=== PATIENT | male | born 1980 | race American Indian/Alaskan Native ===

== ENCOUNTER 2019-12-27 19:09 | Observation (INO) | payer OTHER ==
[2019-12-27 20:07] LABS: Basophils # (Auto) 0.1 K/mm3 (0.0-0.1); Basophils % (Auto) 0.8 % (0.0-1.8); Eosinophils % (Auto) 0.3 % (0.0-4.3); Hematocrit 45.4 % (35.5-45.6); Hemoglobin 15.7 gm/dl (11.8-15.2); Lymphocytes # (Auto) 1.3 K/mm3 (1.2-5.4); Lymphocytes % (Auto) 18.4 % (13.4-35.0); Mean Corpuscular HGB Conc 35 % (32-34); Mean Corpuscular Volume 94 fl (84-94); Monocytes # (Auto) 0.4 K/mm3 (0.0-0.8); Monocytes % (Auto) 5.7 % (0.0-7.3); Platelet Count 297 K/mm3 (140-440); Red Blood Count 4.84 M/mm3 (3.65-5.03); Red Cell Distribution Width 15.2 % (13.2-15.2)
[2019-12-27 20:24] LABS: Alanine Aminotransferase 26 units/L (7-56); Albumin 5.2 g/dL (3.9-5); BUN/Creatinine Ratio 14; Blood Urea Nitrogen 15 mg/dL (9-20); Calcium 10.1 mg/dL (8.4-10.2); Hemolysis Index 36
[2019-12-27 20:59] LABS: Bacteria,Urine 1+ /HPF (Negative); Bilirubin,Urine NEG (Negative); Blood,Urine SM (Negative); Color,Urine Yellow (Yellow); Mucus,Urine FEW /HPF; Urobilinogen,Urine < 2.0 mg/dL (<2.0)
[2019-12-28] MEDS ORDERED: ONDANSETRON 4 MG/2 ML INJ IV ONE (01:43)
[2019-12-28] MEDS ORDERED: SODIUM CHLORIDE 0.9% 1000 ML 1,000 ML IV ONE ×3 (01:46→04:15)
--- NOTE | 2019-12-28 01:47 | Emergency Department Report ---
ED N/V/D HPI - General Chief complaint: Nausea/Vomiting/Diarrhea Stated complaint: N/V HEAVY SWEATING PUI?: No Time Seen by Provider: 12/28/19 01:43 Source: patient Mode of arrival: Ambulatory Limitations: No Limitations - History of Present Illness Initial comments: Patient is a 39-year-old male that presents nausea vomiting and diaphoresis. Patient states he is also having body aches and chills. Patient denies fever. Patient denies abdominal pain. Patient denies blood in his vomitus. Patient states his symptoms are worsening. Patient states he is not able to hold any p.o. intake down. Patient states he is vomiting multiple times per day. Patient states his symptoms started at 4 PM yesterday. Patient states that he is feeling fatigued. Patient denies diarrhea. Patient denies chest pain. Patient denies shortness of breath. Patient denies cough. MD complaint: nausea, vomiting -: Sudden Description of Vomiting: watery Associated Abdominal Pain: No Severity: severe Pain Scale: 0 Consistency: constant Improves with: rest Worsens with: eating Associated Symptoms: myalgias, diaphoresis, malaise, nausea/vomiting. denies: chest pain, cough, headaches, loss of appetite, rash, dysuria, shortness of breath, syncope - Related Data Allergies Allergy/AdvReac Type Severity Reaction Status Date / Time No Known Allergies Allergy Verified 12/28/19 01:57 ED Review of Systems ROS: Stated complaint: N/V HEAVY SWEATING Other details as noted in HPI Constitutional: diaphoresis, malaise. denies: chills, fever Eyes: denies: eye pain, eye discharge, vision change ENT: denies: ear pain, throat pain Respiratory: denies: cough, shortness of breath, wheezing Cardiovascular: denies: chest pain, palpitations Endocrine: no symptoms reported Gastrointestinal: nausea, vomiting. denies: abdominal pain, diarrhea Genitourinary: denies: urgency, dysuria Musculoskeletal: denies: back pain, joint swelling, arthralgia Skin: denies: rash, lesions Neurological: denies: headache, weakness, paresthesias Psychiatric: denies: anxiety, depression Hematological/Lymphatic: denies: easy bleeding, easy bruising ED Past Medical Hx - Past Medical History Previous Medical History?: Yes Hx Hypertension: Yes - Surgical History Past Surgical History?: No Additional Surgical History: Tonsilectomy - Family History Family history: no significant - Social History Smoking Status: Current Every Day Smoker Substance Use Type: Alcohol, Marijuana ED Physical Exam - General Limitations: No Limitations General appearance: alert, in no apparent distress - Head Head exam: Present: atraumatic, normocephalic - Eye Eye exam: Present: normal appearance, PERRL Pupils: Present: normal accommodation - ENT ENT exam: Present: mucous membranes dry - Neck Neck exam: Present: normal inspection - Respiratory Respiratory exam: Present: normal lung sounds bilaterally. Absent: respiratory distress - Cardiovascular Cardiovascular Exam: Present: regular rate, normal rhythm. Absent: systolic murmur, diastolic murmur, rubs, gallop - GI/Abdominal GI/Abdominal exam: Present: soft, normal bowel sounds. Absent: distended, tenderness, guarding - Rectal Rectal exam: Present: deferred - Extremities Exam Extremities exam: Present: normal inspection - Back Exam Back exam: Present: normal inspection - Neurological Exam Neurological exam: Present: alert, oriented X3 - Psychiatric Psychiatric exam: Present: normal affect, normal mood - Skin Skin exam: Present: warm, dry, intact, normal color. Absent: rash ED Course Vital Signs 12/27/19 12/28/19 12/28/19 19:17 02:59 03:00 Temperature 97.6 F Pulse Rate 58 L 54 L 55 L Respiratory 20 19 19 Rate Blood Pressure 216/147 O2 Sat by Pulse 98 100 98 Oximetry 12/28/19 12/28/19 12/28/19 03:15 03:31 03:45 Temperature Pulse Rate 57 L 54 L 56 L Respiratory 19 20 19 Rate Blood Pressure 184/118 184/118 184/118 O2 Sat by Pulse 99 99 99 Oximetry 12/28/19 12/28/19 04:01 04:06 Temperature Pulse Rate 57 L Respiratory 20 Rate Blood Pressure 185/107 185/107 O2 Sat by Pulse 99 Oximetry - Reevaluation(s) Reevaluation #1: Patient resting in room. Patient able to tolerate p.o. intake without vomiting. Patient still complains of nausea. Patient still complaining of muscle pain. I discussed all results with patient. I discussed plan of care with patient. Patient agrees with plan of care and admission. Patient to be admitted to the hospitalist service. 12/28/19 03:44 Reevaluation #2: Patient is vomiting again. Patient will be given Compazine. Patient was given more fluids. 12/28/19 04:15 - Consultations Consultation #1: Hospitalist consulted for admission. Hospitalist to admit patient. 12/28/19 03:45 ED Medical Decision Making - Lab Data Result diagrams: 12/27/19 19:41 12/27/19 19:41 - EKG Data -: EKG Interpreted by Me EKG shows normal: sinus rhythm, axis, intervals, QRS complexes, ST-T waves Rate: bradycardia - EKG Data Interpretation: LVH - Radiology Data Radiology results: report reviewed, image reviewed interpreted by me: Chest x-ray: No pneumonia, no pneumothorax, normal heart size, no foreign body, no acute findings. CHEST 1 VIEW INDICATION: n/v hbp. COMPARISON: 10/01/2016. FINDINGS: Support devices: None. Heart: Stable borderline heart size. Lungs/Pleura: No acute air space or interstitial disease. Additional findings: None. IMPRESSION: No acute abnormality. - Medical Decision Making Patient is a 39-year-old male that presents emergency room with complaints of nausea, vomiting, Body aches, muscle cramps. patient has a history of hypertension but patient is noncompliant with medication. Patient's blood pressure extremely high in the ER. Patient given Vasotec IV for the blood pressure. Patient given Zofran 8 mg and patient still continued to have nausea vomiting. Patient admitted to the hospitalist service. Patient's labs are essentially unremarkable. - Differential Diagnosis Intractable nausea vomiting, gastroenteritis, myalgia, rhabdo, dehydration Critical Care Time: Yes Critical care time in (mins) excluding proc time.: 35 Critical care attestation.: If time is entered above; I have spent that time in minutes in the direct care of this critically ill patient, excluding procedure time. Critical Care Time: 35 minutes ED Disposition Clinical Impression: Elevated CK-MB level, Gastroenteritis, Intractable vomiting with nausea, Myalgia, Hypertensive emergency without congestive heart failure Rhabdomyolysis Qualifiers: Rhabdomyolysis type: non-traumatic Qualified Code(s): M62.82 - Rhabdomyolysis Disposition: OP ADMIT IP TO THIS HOSP Is pt being admited?: Yes Does the pt Need Aspirin: No Condition: Critical Time of Disposition: 03:48
[2019-12-28] MEDS ORDERED: SODIUM CHLORIDE 0.9% 1000 ML 1,000 ML ONE ×4 (01:49→06:49)
--- NOTE | 2019-12-28 02:10 | XRay Report ---
CHEST 1 VIEW INDICATION: n/v hbp. COMPARISON: 10/01/2016. FINDINGS: Support devices: None. Heart: Stable borderline heart size. Lungs/Pleura: No acute air space or interstitial disease. Additional findings: None. IMPRESSION: No acute abnormality. Signer Name: Chance Enriquez MD Signed: 12/28/2019 2:06 AM Workstation Name: [id number]
[2019-12-28] MEDS ORDERED: ENALAPRILAT 2.5 MG/2 ML INJ IV ONE (03:44)
[2019-12-28] MEDS ORDERED: PROCHLORPERAZINE EDISYLATE 10 MG/2 ML VIAL IV ONE (04:14)
--- NOTE | 2019-12-28 08:38 | History and Physical Report ---
History of Present Illness Date of examination: 12/28/19 Date of admission: 12/28/19 03:50 Chief complaint: Nausea vomiting diaphoresis History of present illness: 39-year-old male patient with significant past medical history of hypertension, not on any medications for many months presented to the emergency room with nausea vomiting and diaphoresis since last night. Patient also complains of generalized body pains and chills denies fever . Patient denies headache dizziness weakness or numbness, denies chest pain or shortness of breath No nausea vomiting or abdominal pain Patient denies fever, no upper respiratory or urinary symptoms Initial work-up in the emergency room is consistent with hypertensive emergency Chest x-ray no acute abnormality noted Patient was given multiple antihypertensives with mild improvement of blood pressures Past History Past Medical History: hypertension Past Surgical History: denies: No surgical history Social history: lives with family, smoking. denies: alcohol abuse, prescription drug abuse Family history: hypertension Medications and Allergies Allergies Allergy/AdvReac Type Severity Reaction Status Date / Time No Known Allergies Allergy Verified 12/28/19 01:57 Active Meds: Active Medications Hydralazine HCl (Apresoline) 50 mg PO Q8HR URIAH Labetalol HCl (Labetalol) 20 mg IV ONCE ONE Stop: 12/28/19 08:36 Labetalol HCl (Labetalol) 10 mg IV Q4H PRN PRN Reason: Hypertension Metoprolol Tartrate (Metoprolol) 25 mg PO BID URIAH Review of Systems Constitutional: weakness, no weight loss, no weight gain, no anorexia, no fatigue Ears, nose, mouth and throat: no nasal congestion, no nasal discharge Cardiovascular: no chest pain, no orthopnea Respiratory: no cough, no hemoptysis, no shortness of breath Gastrointestinal: abdominal pain, nausea, vomiting Genitourinary Male: no dysuria, no hematuria Musculoskeletal: no myalgias, no arthritis Integumentary: no rash, no lesions Neurological: no seizures, no syncope, no tremors Psychiatric: no anxiety, no depression Endocrine: no cold intolerance, no heat intolerance, no polydipsia, no polyuria Hematologic/Lymphatic: no easy bruising, no easy bleeding Allergic/Immunologic: no urticaria, no allergic rhinitis Exam - Constitutional Vitals: Temp Pulse Resp BP Pulse Ox 99.4 F 75 18 189/119 100 12/28/19 08:22 12/28/19 08:22 12/28/19 08:22 12/28/19 08:22 12/28/19 08:22 General appearance: Present: no acute distress, well-nourished - EENT Eyes: Present: PERRL, EOM intact - Neck Neck: Present: supple, normal ROM - Respiratory Respiratory effort: normal Respiratory: bilateral: diminished, negative: rales, rhonchi, wheezing - Cardiovascular Rhythm: regular Heart Sounds: Present: S1 & S2 - Extremities Extremities: no ischemia, No edema - Abdominal General gastrointestinal: Present: soft, non-tender, non-distended, normal bowel sounds - Integumentary Integumentary: Present: clear, warm - Musculoskeletal Musculoskeletal: strength equal bilaterally, generalized weakness - Psychiatric Psychiatric: appropriate mood/affect, cooperative - Neurologic Neurologic: moves all extremities HEART Score - HEART Score Troponin: Troponin T < 0.010 ng/mL (0.00-0.029) 12/27/19 19:41 Results - Labs CBC & Chem 7: 12/27/19 19:41 12/27/19 19:41 Labs: Abnormal lab results 12/27/19 12/27/19 12/28/19 Range/Units 19:41 19:41 Unknown Hgb 15.7 H (11.8-15.2) gm/dl MCH 33 H (28-32) pg MCHC 35 H (32-34) % Seg Neutrophils % 74.8 H (40.0-70.0) % Glucose 137 H (75-100) mg/dL Total Creatine Kinase 607 H (55-170) units/L Total Protein 8.3 H (6.3-8.2) g/dL Albumin 5.2 H (3.9-5) g/dL Assessment and Plan --Hypertensive emergency; Managed with multiple antihypertensives, labetalol, hydralazine Nifedipine, PRN medications, if no improvement Consider Cardene drip and admit to ICU --Intractable nausea vomiting/gastroenteritis; Aggressive IV hydration, antiemetics, antidiarrheals Clear liquid diet, supportive care check CT abdomen If no improvement --Mild elevation of CK; IV fluids, check drug screen --DVT prophylaxis; Lovenox We will closely monitor patient and adjust management as needed Plan of care reviewed with the patient and his nurse
[2019-12-28 09:17] LABS: Amphetamine Screen,Urine Negative; Benzodiazepines Screen,Urine Negative; Cocaine Screen,Urine Negative; Methadone Screen,Urine Negative; Opiate Screen,Urine Negative
[2019-12-28 09:41] LABS: Cannabinoid Screen,Urine Positive
[2019-12-28] MEDS ORDERED: METOPROLOL TARTRATE 25 MG TAB ONE (10:09)
[2019-12-28] MEDS ORDERED: PANTOPRAZOLE 40 MG INJ IV ONE (10:10)
[2019-12-28] MEDS: PANTOPRAZOLE 40 MG INJ IV SCH (10:43)
[2019-12-28] MEDS: METOPROLOL TARTRATE 25 MG TAB PO SCH ×2 (10:43→21:16)
[2019-12-28] MEDS: ONDANSETRON 4 MG/2 ML INJ IV PRN ×2 (11:46→18:44)
[2019-12-28] MEDS: ACETAMINOPHEN 325 MG TAB PO PRN (11:47)
[2019-12-28] MEDS ORDERED: NIFEdipine XL 30 MG TAB PO ONE (13:17)
[2019-12-28] MEDS ORDERED: ALPRAZolam 0.5 MG TAB PO PRN (13:18)
[2019-12-28] MEDS ORDERED: hydrALAZINE 25 MG TAB PO SCH (14:00)
[2019-12-28] MEDS: hydrALAZINE 100 MG TAB PO SCH (18:45)
[2019-12-28] MEDS: ENOXAPARIN 40 MG/0.4 ML INJ SUB-Q SCH (21:15)
[2019-12-28] MEDS ORDERED: NIFEdipine XL 30 MG TAB PO SCH (22:00)
[2019-12-29] MEDS: hydrALAZINE 100 MG TAB PO SCH ×4 (01:57→18:32)
--- NOTE | 2019-12-29 08:32 | Progress Note ---
Assessment and Plan Assessment and plan: --Hypertensive emergency; Slightly improved,adjust antihypertensives Managed with multiple antihypertensives, labetalol, hydralazine Nifedipine, PRN medications, if no improvement f/u pending CT head and ECHO --Intractable nausea vomiting/gastroenteritis; Aggressive IV hydration, antiemetics, antidiarrheals Clear liquid diet, supportive care check CT abdomen If no improvement --Mild elevation of CK; IV fluids,drug screen positive for marijuana --DVT prophylaxis; Lovenox We will closely monitor patient and adjust management as needed Plan of care reviewed with the patient and his nurse History Interval history: I have seen and examined the patient at the bedside Patient's chart and current medications reviewed Patient's blood pressure slightly improved Patient denies any chest pain or shortness of breath Denies headache or dizziness Complains of mild nausea no vomiting Vital signs noted Hospitalist Physical - Constitutional Vitals: Temp Pulse Resp BP Pulse Ox 99.2 F 74 20 178/101 96 12/29/19 05:26 12/29/19 05:26 12/29/19 05:26 12/29/19 05:26 12/29/19 05:26 General appearance: Present: no acute distress, well-nourished - EENT Eyes: Present: PERRL, EOM intact - Neck Neck: Present: supple, normal ROM - Respiratory Respiratory effort: normal Respiratory: bilateral: diminished, negative: rales, rhonchi, wheezing - Cardiovascular Rhythm: regular Heart Sounds: Present: S1 & S2 - Extremities Extremities: no ischemia, No edema - Abdominal General gastrointestinal: soft, non-tender, non-distended, normal bowel sounds - Integumentary Integumentary: Present: clear, warm - Psychiatric Psychiatric: appropriate mood/affect, cooperative - Neurologic Neurologic: moves all extremities HEART Score - HEART Score Troponin: Troponin T < 0.010 ng/mL (0.00-0.029) 12/27/19 19:41 Results - Labs CBC & Chem 7: 12/27/19 19:41 12/29/19 08:56 Labs: Laboratory Last Values WBC 6.9 K/mm3 (4.5-11.0) 12/27/19 19:41 RBC 4.84 M/mm3 (3.65-5.03) 12/27/19 19:41 Hgb 15.7 gm/dl (11.8-15.2) H 12/27/19 19:41 Hct 45.4 % (35.5-45.6) 12/27/19 19:41 MCV 94 fl (84-94) 12/27/19 19:41 MCH 33 pg (28-32) H 12/27/19 19:41 MCHC 35 % (32-34) H 12/27/19 19:41 RDW 15.2 % (13.2-15.2) 12/27/19 19:41 Plt Count 297 K/mm3 (140-440) 12/27/19 19:41 Lymph % (Auto) 18.4 % (13.4-35.0) 12/27/19 19:41 Leslie % (Auto) 5.7 % (0.0-7.3) 12/27/19 19:41 Eos % (Auto) 0.3 % (0.0-4.3) 12/27/19 19:41 Baso % (Auto) 0.8 % (0.0-1.8) 12/27/19 19:41 Lymph # 1.3 K/mm3 (1.2-5.4) 12/27/19 19:41 Leslie # 0.4 K/mm3 (0.0-0.8) 12/27/19 19:41 Eos # 0.0 K/mm3 (0.0-0.4) 12/27/19 19:41 Baso # 0.1 K/mm3 (0.0-0.1) 12/27/19 19:41 Seg Neutrophils % 74.8 % (40.0-70.0) H 12/27/19 19:41 Seg Neutrophils # 5.2 K/mm3 (1.8-7.7) 12/27/19 19:41 Sodium 140 mmol/L (137-145) 12/27/19 19:41 Potassium 4.0 mmol/L (3.6-5.0) 12/27/19 19:41 Chloride 102.0 mmol/L (98-107) 12/27/19 19:41 Carbon Dioxide 22 mmol/L (22-30) 12/27/19 19:41 Anion Gap 20 mmol/L 12/27/19 19:41 BUN 15 mg/dL (9-20) 12/27/19 19:41 Creatinine 1.1 mg/dL (0.8-1.3) 12/27/19 19:41 Estimated GFR > 60 ml/min 12/27/19 19:41 BUN/Creatinine Ratio 14 % 12/27/19 19:41 Glucose 137 mg/dL (75-100) H 12/27/19 19:41 Calcium 10.1 mg/dL (8.4-10.2) 12/27/19 19:41 Total Bilirubin 0.50 mg/dL (0.1-1.2) 12/27/19 19:41 AST 27 units/L (5-40) 12/27/19 19:41 ALT 26 units/L (7-56) 12/27/19 19:41 Alkaline Phosphatase 70 units/L (35-129) 12/27/19 19:41 Total Creatine Kinase 607 units/L (55-170) H 12/28/19 Unknown Troponin T < 0.010 ng/mL (0.00-0.029) 12/27/19 19:41 Total Protein 8.3 g/dL (6.3-8.2) H 12/27/19 19:41 Albumin 5.2 g/dL (3.9-5) H 12/27/19 19:41 Albumin/Globulin Ratio 1.7 % 12/27/19 19:41 Lipase 29 units/L (13-60) 12/27/19 19:41 Urine Color Yellow (Yellow) 12/27/19 Unknown Urine Turbidity Slightly-cloudy (Clear) 12/27/19 Unknown Urine pH 7.0 (5.0-7.0) 12/27/19 Unknown Ur Specific Moran 1.018 (1.003-1.030) 12/27/19 Unknown Urine Protein 30 mg/dl mg/dL (Negative) 12/27/19 Unknown Urine Glucose (UA) 50 mg/dL (Negative) 12/27/19 Unknown Urine Ketones 20 mg/dL (Negative) 12/27/19 Unknown Urine Blood Sm (Negative) 12/27/19 Unknown Urine Nitrite Neg (Negative) 12/27/19 Unknown Urine Bilirubin Neg (Negative) 12/27/19 Unknown Urine Urobilinogen < 2.0 mg/dL (<2.0) 12/27/19 Unknown Ur Leukocyte Esterase Neg (Negative) 12/27/19 Unknown Urine WBC (Auto) 1.0 /HPF (0.0-6.0) 12/27/19 Unknown Urine RBC (Auto) 9.0 /HPF (0.0-6.0) 12/27/19 Unknown Urine Bacteria (Auto) 1+ /HPF (Negative) 12/27/19 Unknown Urine Mucus Few /HPF 12/27/19 Unknown Urine Opiates Screen Negative 12/28/19 08:55 Urine Methadone Screen Negative 12/28/19 08:55 Ur Barbiturates Screen Negative 12/28/19 08:55 Ur Phencyclidine Scrn Negative 12/28/19 08:55 Ur Amphetamines Screen Negative 12/28/19 08:55 U Benzodiazepines Scrn Negative 12/28/19 08:55 Urine Cocaine Screen Negative 12/28/19 08:55 U Marijuana (THC) Screen Positive 12/28/19 08:55 Drugs of Abuse Note Disclamer 12/28/19 08:55 Hough/IV: Voiding Method Toilet IV Catheter Type [right ac] Peripheral IV Active Medications - Current Medications Current Medications: Generic Name Dose Route Start Last Admin Trade Name Freq PRN Reason Stop Dose Admin Acetaminophen 650 mg 12/28/19 08:39 Tylenol PO Q4H PRN Pain, Mild (1-3) Alprazolam 0.5 mg 12/28/19 13:18 12/28/19 18:45 Xanax PO 0.5 mg Q8H PRN Administration Anxiety Enoxaparin Sodium 40 mg 12/28/19 22:00 12/28/19 21:15 Enoxaparin SUB-Q 40 mg QDAY@2200 URIAH Administration Hydralazine HCl 100 mg 12/28/19 18:00 12/29/19 01:57 Apresoline PO 100 mg Q8H URIAH Administration Labetalol HCl 10 mg 12/28/19 08:35 12/28/19 18:44 Labetalol IV 10 mg Q4H PRN Administration Hypertension Metoprolol Tartrate 25 mg 12/28/19 10:00 12/28/19 21:16 Metoprolol PO 25 mg BID URIAH Administration Nifedipine 30 mg 12/28/19 22:00 12/28/19 21:16 Procardia Xl PO 30 mg Q12HR URIAH Administration Ondansetron HCl 4 mg 12/28/19 08:39 12/28/19 18:44 Zofran IV 4 mg Q4H PRN Administration Nausea And Vomiting Pantoprazole Sodium 40 mg 12/28/19 10:00 12/28/19 10:43 Protonix IV 40 mg QDAY URIAH Administration
[2019-12-29 09:43] LABS: BUN/Creatinine Ratio 14; Blood Urea Nitrogen 17 mg/dL (9-20); Calcium 9.4 mg/dL (8.4-10.2); Hemolysis Index 4
[2019-12-29] MEDS: METOPROLOL TARTRATE 25 MG TAB PO SCH ×2 (10:56→22:11)
[2019-12-29] MEDS: PANTOPRAZOLE 40 MG INJ IV SCH (10:56)
[2019-12-29] MEDS: NIFEdipine XL 60 MG TAB PO SCH (10:57)
[2019-12-29] MEDS: ACETAMINOPHEN 325 MG TAB PO PRN (12:33)
[2019-12-29] MEDS: ENOXAPARIN 40 MG/0.4 ML INJ SUB-Q SCH (22:53)
--- NOTE | 2019-12-30 09:40 | Discharge Summary ---
Providers - Providers Date of Admission: 12/28/19 03:50 Date of discharge: 12/30/19 Attending physician: ALLA GIL Primary care physician: CLOTH BIN PACKER Hospitalization Condition: Stable Disposition: DC-01 TO HOME OR SELFCARE Time spent for discharge: 32 min Core Measure Documentation - Palliative Care Palliative Care/ Comfort Measures: Not Applicable - Core Measures Any of the following diagnoses?: none Exam - Constitutional Vitals: Temp Pulse Resp BP Pulse Ox 99.3 F 68 20 152/87 97 12/30/19 04:34 12/30/19 04:34 12/30/19 04:34 12/30/19 04:34 12/30/19 04:34 General appearance: Present: no acute distress, well-nourished - EENT Eyes: Present: PERRL, EOM intact - Neck Neck: Present: supple, normal ROM - Respiratory Respiratory effort: normal Respiratory: bilateral: diminished, negative: rales, rhonchi, wheezing - Cardiovascular Rhythm: regular Heart Sounds: Present: S1 & S2 - Extremities Extremities: no ischemia, No edema - Abdominal General gastrointestinal: Present: soft, non-tender, non-distended, normal bowel sounds - Integumentary Integumentary: Present: clear, warm - Musculoskeletal Musculoskeletal: strength equal bilaterally - Psychiatric Psychiatric: appropriate mood/affect, cooperative - Neurologic Neurologic: CNII-XII intact, moves all extremities Plan Activity: no restrictions Diet: low salt Additional Instructions: Strongly advised to comply with medications, diet, follow-up visits. If you have worsening symptoms contact MD or go to emergency room. Smoking cessation, nicotine patch as needed. Strongly advised to quit recreational drug use Follow up with: PRIMARY CARE, [Primary Care Provider] - 7 Days Prescriptions: hydrALAZINE [Apresoline TAB] 100 mg PO Q8H #90 tab Metoprolol [Lopressor TAB] 50 mg PO BID #60 tablet NIFEdipine XL [Procardia Xl] 60 mg PO Q12HR #60 tablet
[2019-12-30] MEDS ORDERED: PANTOPRAZOLE 40 MG TAB PO SCH (10:00)
[2019-12-30] MEDS: NIFEdipine XL 60 MG TAB PO SCH (11:05)
[2019-12-30] MEDS: METOPROLOL TARTRATE 25 MG TAB PO SCH (11:05)
[2019-12-30] MEDS: hydrALAZINE 100 MG TAB PO SCH (11:06)
[2019-12-30 15:29] VITALS: BP 143/80
== END 2019-12-30 16:30 | disposition home or self-care (01) ==
LOC: EDSEX → ED 19:09 → 3A 12-28 03:50
PROVIDERS: ADMIT Internal Medicine Geriatric Medicine; ATTEND Internal Medicine
DX: I16.0 Hypertensive urgency (principal); K52.9 Noninfective gastroenteritis and colitis, unspecified; M62.82 Rhabdomyolysis; R74.8 Abnormal levels of other serum enzymes; R61 Generalized hyperhidrosis; F17.210 Nicotine dependence, cigarettes, uncomplicated; Z90.49 Acquired absence of other specified parts of digestive tract; Z79.899 Other long term (current) drug therapy
CPT/HCPCS: 36415; 71045; 80048; 80053; 80307; 81001; 82550; 83690; 84484; 85025; 93005; 96361; 96372; 96374; 96375; 96376; 99291; 99406; C9113; G0378; J0780; J1650; J2405; J7030